=== PATIENT | male | born 1995 | race Caucasian/White ===

== ENCOUNTER 2021-09-24 15:39 | Emergency (ER) | payer OTHER, SELFPAY ==
[2021-09-24 15:43] VITALS: PULSE 85; TEMP 36.9; BMI 25.8
--- NOTE | 2021-09-24 16:48 | ED.EYEPROB ---
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 Flush his eye with water still feel foreign body in the left cornea no other injury vision is normal Related Data Previous Rx's Medication Instructions Recorded tobramycin 0.3 % eye drops (Tobrex) 2 drp OPHTHALMIC-LEFT Q4H #5 ml 09/24/21 Allergies Allergy/AdvReac Type Severity Reaction Status Date / Time Unable to Assess Allergy Unverified 09/24/21 16:43 Review of Systems Review of Systems: Yes all other systems are reviewed and are negative PMFSH Social History Social History Advance Directives: No Advance Directives Information Provided: No Physical Exam Vital Signs: Vital Signs: Last Vital Signs Temp 98.5 F 09/24/21 15:43 Pulse 85 09/24/21 15:43 BMI result Body Mass Index 25.8 Const: General: comfortable and no acute distress Eyes: General: appearance normal, both eyes and all related structures Corneas: corneas abnormal ( foreign body and left cornea at 03:00 o'clock position) on the left and fluorescein used Eyes/upper lids images: 1. 03:00 o'clock small debris left cornea Resp: Effort & Inspection: normal respiratory effort MDM - Eye Problem MDM Narrative Medical decision making narrative: foreign body was removed completely using 18 gauge needle Procedures FB Removal Eye Time Out performed: Yes Location: eye (L) Topical anesthetic used: tetracaine Foreign body: metal Evidence of corneal penetration: Yes Technique: needle Procedure performed under: direct visualization with magnification Post-procedure medication: ophthalmic antibiotic and topical anesthetic Patient tolerated procedure: well Discharge Plan Discharge Clinical Impression: Foreign body in cornea Qualifiers: Encounter type: initial encounter Laterality: left Qualified Code(s): T15.02XA - Foreign body in cornea, left eye, initial encounter Patient Disposition: Home, Self-Care Instructions: Eye Foreign Body (ED) Additional Instructions: local care as adv put eye drops 2 drops every 4-6 hrs for next 4 days till completely get better atenci?n local otilio adv ponga gotas para los ojos 2 gotas cada 4-6 horas edwige los pr?ximos 4 d?as hasta que mejore por completo Prescriptions: New tobramycin [Tobrex] 0.3 % drops 2 drp ophthalmic-Left Q4H Qty: 5 RF: 0 Interventions: ED Discharge Assessment Last Done: 09/24/21 17:13 Discharge Date/Time: 09/24/21 17:13 Print Language: Kinyarwanda
[2021-09-24] MEDS: Tobramycin Sulfate 0.3% Sol Op 5 ML BTL 2 DROP EYE-LEFT (17:10)
[2021-09-24] MEDS: Tetracaine HCl/PF 0.5% Oph Sol 4 ML DROPS 1 DROP EYE-LEFT (17:11)
[2021-09-24] MEDS: Fluorescein Sodium STRIP 1 STRIP EYE-LEFT (17:11)
== END 2021-09-24 17:13 | disposition home or self-care (01) ==
PROVIDERS: Emergency Provider Internal Medicine
DX: T15.02XA Foreign body in cornea, left eye, initial encounter (principal); X58.XXXA Exposure to other specified factors, initial encounter; Y93.H3 Activity, building and construction; Y92.9 Unspecified place or not applicable; Y99.0 Civilian activity done for income or pay
CPT/HCPCS: 65220; 99284